=== PATIENT | male | born 1970 | race Caucasian/White ===

== ENCOUNTER → 2018-03-03 | Outpatient (REF) | payer OTHER ==
[~2018-03-03] MED LIST: ACYC800T99 PO; MET500 PO
[2018-03-03 12:35] LABS: PLATELET COUNT, AUTOMATED 108 K/uL (150-450)
== END ==
PROVIDERS: ATTEND Nurse Practitioner Family
DX: R07.9 Chest pain, unspecified (principal)
CPT/HCPCS: 82040; 82247; 82310; 82374; 82435; 82565; 82947; 84075; 84132; 84155; 84295; 84450; 84460; 84484; 84520; 85025